=== PATIENT | male | born 1935 | race Caucasian/White ===

== ENCOUNTER → 2019-12-08 13:55 | Outpatient (CLI) | payer OTHER, SELFPAY ==
--- NOTE | 2019-12-08 13:57 | DI.RAD.S_ITS ---
PROCEDURE: XR LUMBAR SPINE MIN 4V INDICATIONS: LBP TECHNIQUE: 5 views of the lumbar spine were acquired. COMPARISON: [facility], JOSE, SPINE LUMB MIN 4VW, 10/01/2016, 14:57. FINDINGS: Bones: 5 nonrib-bearing vertebrae are present. There is normal bony alignment. There is approximately 11? of convex right lumbar spine scoliosis. No vertebral body compression fractures. No suspicious bony lesions. Moderate degenerative disc changes noted throughout the lumbar spine. Mild L2-L3 facet hypertrophy. Moderate L3-L4, L4-L5 and L5-S1 facet hypertrophy. Soft tissues: Overlying bowel gas pattern is normal. No suspicious soft tissue calcifications. Oblique images: No pars defects. IMPRESSION: 1. Multilevel degenerative disc disease. 2. Multilevel facet arthropathy. 3. No fracture. No acute osseous lesion. If symptoms and/or clinical suspicion for pathology persists, evaluation with MRI may be helpful for further assessment. Dictated by: Jenny Sinclair MD, PhD on 12/08/2019 at 15:49 Approved by: Jenny Sinclair MD, PhD on 12/08/2019 at 15:50
== END ==
PROVIDERS: PCP Internal Medicine; Referring Provider Physical Medicine & Rehabilitation; Visit Provider Physical Medicine & Rehabilitation
DX: M54.5 Low back pain (principal); M47.26 Other spondylosis with radiculopathy, lumbar region; M47.27 Other spondylosis with radiculopathy, lumbosacral region; M51.16 Intervertebral disc disorders with radiculopathy, lumbar region; M41.86 Other forms of scoliosis, lumbar region; R26.81 Unsteadiness on feet; H91.90 Unspecified hearing loss, unspecified ear
CPT/HCPCS: 72110; 99214

== ENCOUNTER → 2020-02-21 08:33 | Outpatient (CLI) | payer OTHER, SELFPAY ==
[2020-02-22 02:18] LABS: COVID19 Sendout Not Detected (Not Detect)
== END ==
PROVIDERS: PCP Internal Medicine; Visit Provider Physician Assistant
DX: Z11.59 Encounter for screening for other viral diseases (principal)
CPT/HCPCS: 87635

== ENCOUNTER 2020-02-24 07:05 | Outpatient (CLI) | payer OTHER, SELFPAY ==
[2020-02-24] VITALS (16 sets, daily range): BP systolic 138–207; BP diastolic 58–120; PULSE 43–51; RESP 15–20; TEMP 36; O2SAT 94–99
--- NOTE | 2020-02-24 | DI.RAD.S_ITS ---
PROCEDURE: PAIN L/S FACET INJ/BLK 1ST SHAY COMPARISON: [facility], MR, MR LUMBAR SPINE WITHOUT CONTRAST, 02/07/2020, 9:32. INDICATIONS: ARTHROPATHY OF LUMBAR FACET FINDINGS: Fluoroscopic spot filming was performed to verify placement of a spinal needle at the L4-L5 level and L5-S1 level on both sides, as labeled on the films. Appropriate location of the needle tip was confirmed by injection of iodinated contrast. IMPRESSION: Intraprocedural examination within normal limits. Dictated by: Popeye Bain M.D. on 02/24/2020 at 12:18 Approved by: Popeye Bain M.D. on 02/24/2020 at 12:19
--- NOTE | 2020-02-24 09:03 | PC.NURSE ---
Case cancelled prior to any medication administration. Pt was positioned on procedure bed, first set of vitals taken. See vitals screen. Pt asymptomatic. Dr Coffey explained to pt that evaluation of low BP with hypertension was needed prior to rescheduling.
[2020-02-24] MEDS: MIDAZOLAM 5 MG/5 ML VIAL IV (10:21)
[2020-02-24] MEDS: BETAMETHASONE 30 MG/5 ML MDV 12 MG INJ (10:25)
[2020-02-24] MEDS: IOPAMIDOL 15 ML VIAL 3 ML INJ (10:26)
[2020-02-24] MEDS: BUPIVACAINE 0.5% (PF) VIAL 5 ML INJ (10:26)
[2020-02-24] MEDS: LIDOCAINE 1% 20 ML 10 ML INJ (10:26)
--- NOTE | 2020-02-24 10:38 | P.PCN_ITS ---
Date/Time/Diagnoses Date of procedure: 02/24/20 Time of procedure: 10:39 Pre-procedure diagnosis: 1. FACET ARTHROPATHY 2. AXIAL LBP 3. MULTILEVEL DDD Post-procedure diagnosis: same Procedure Notes Procedure: 1. FLUOROSCOPICALLY GUIDED CONTRAST CONTROLLED FACET JOINT INJECTIONS BILATERAL L4/5, L5/S1 Indications: Link is referred by Dr. Donohue for treatment of Axial LBP Physician: Albaro Coffey Total Fluoroscopy time (seconds): 11 Total sedation minutes: 10 Complications: none Procedure in detail & Post-procedure care: FINDINGS Multilevel Facet Arthropathy with Clinically significant axial LBP DESCRIPTION OF PROCEDURE Fluoroscopically guided, contrast-controlled bilateral L4/5, L5/S1 facet joint injections. Following review of allergy and review of potential side effects and complications, including, but not necessarily limited to, infection, allergic reaction, local tissue breakdown, stroke, temporary or permanent nerve injury, paralysis, and possible , the patient indicated that the patient understood and agreed to proceed. An informed consent document was signed by the patient, witnessed by a nurse, and placed in the patient's chart. Additionally, other treatment options including medications, modalities, and physical therapy were reviewed with the patient. After review of previous anaesthesic history and IV conscious sedation the patient was deemed safe to proceed with today?s procedure with IV conscious sedation as ASA class II designation. Safety time-out was performed to confirm patient ID, procedure to be performed and site of procedure. IV sedation was accomplished with a combination of 1mg of Versed was administered by the RN after DO order, titrated to patient comfort during the course of the procedure while the patient remained responsive to all verbal commands In the prone position, following sterile prep and drape of the lumbar region, the posterior aspect of the L4/5, L5/S1 facet joints were identified fluoroscopically. The skin was anesthetized via a 25-gauge 1.5inch needle with 1% lidocaine solution into the corresponding facet joints. At this point, a 22- gauge 3.5-inch spinal needle was atraumatically introduced and advanced under fluoroscopic guidance into the corresponding facet joints. Following negative aspiration, injections of approximately 0.2cc of Isovue 200 confirmed interarticular placement without vascular uptake. The identical procedure was then performed at the L4/5, L5/S1 facet joints on the left. Radiological data, including multiple fluoroscopic views of the lumbosacral spine, reveal a spinal needle at the L4/5, L5/S1 facet joints bilaterally. Subsequent views show flow of contrast material both superiorly and inferiorly within the joint space without vascular or intrathecal uptake. At this point, a total of 0.5cc including a mixture of 0.25cc Marcaine and 0.25cc betamethasone was injected without complication into each of the corresponding facet joints. The patient tolerated the procedure well without signs or symptoms of complications prior to transfer to the recovery area continued monitoring without incident. The patient was then transferred to the recovery area where they were observed for an appropriate period of time after the injection. The patient reported a VAS score of 7 prior to the procedure and a post- procedure VAS of 0. POST OP INSTRUCTIONS The patient was provided a Pain Log to continue to record their response to the target-specific procedure prior to follow-up visit with their referring physician. Additionally, specific post-injection care instructions and a contact number to our office were provided if concerns arise regarding possible complications associated with the procedure are suspected.
--- NOTE | 2020-02-24 12:10 | PC.NURSE ---
Patient came back to post op room, Vital signs and rhythm monitored, Dr Coffey spoke with patients cardiology office and with son who is in room. Patient denies any dizziness or lightheaded. Plan to proceed with injection. Daughter called for update which was given. Patient tolerated injection with no adverse reactions.
--- NOTE | 2020-02-24 16:00 | PC.NURSE ---
All Sedation Medication administered by FREEDOM Zafar. All other procedural meds administered by Dr. Coffey
== END 2020-02-24 11:07 | disposition home or self-care (01) ==
LOC: RAD 07:05
PROVIDERS: PCP Internal Medicine; Referring Provider Internal Medicine; Visit Provider Physical Medicine & Rehabilitation
DX: M47.816 Spondylosis without myelopathy or radiculopathy, lumbar region (principal); M47.817 Spondylosis without myelopathy or radiculopathy, lumbosacral region; M54.5 Low back pain; M51.36 Other intervertebral disc degeneration, lumbar region; M51.37 Other intervertebral disc degeneration, lumbosacral region
CPT/HCPCS: 64493; 64494; 99152; J0702; J2250; J3010

== ENCOUNTER 2021-02-01 15:17 | Outpatient (CLI) | payer OTHER, SELFPAY ==
[2021-02-01] VITALS (9 sets, daily range): BP systolic 124–168; BP diastolic 57–74; PULSE 54–59; RESP 8–20; TEMP 36.1; O2SAT 98–100
--- NOTE | 2021-02-01 15:19 | DI.RAD.S_ITS ---
PROCEDURE: PAIN L INTERLAMINAR/CAUDAL INJ INDICATIONS: SPONDYLOSIS COMPARISON: [facility], XA, PAIN L/S FACET INJ/BLK 1ST SHAY, 02/24/2020, 10:22. FINDINGS: Fluoroscopic spot filming was performed to verify placement of a spinal needle at the L3-L4 level, as labeled on the films. Appropriate location of the needle tip was confirmed by injection of iodinated contrast. IMPRESSION: Intraprocedural examination within normal limits. Dictated by: Popeye Bain M.D. on 02/01/2021 at 15:53 Approved by: Popeye Bain M.D. on 02/01/2021 at 15:53
[2021-02-01] MEDS: MIDAZOLAM 5 MG/5 ML VIAL IV (16:20)
[2021-02-01] MEDS: BETAMETHASONE 30 MG/5 ML MDV 6 MG INJ (16:22)
[2021-02-01] MEDS: BUPIVACAINE 0.25% (PF) VIAL 2 ML INJ (16:22)
[2021-02-01] MEDS: DEXAMETHASONE 10 MG/ML VIAL 20 MG INJ (16:22)
[2021-02-01] MEDS: IOPAMIDOL 15 ML VIAL 3 ML INJ (16:22)
--- NOTE | 2021-02-01 16:29 | P.PCN_ITS ---
Date/Time/Diagnoses Date of procedure: 02/01/21 Time of procedure: 16:29 Pre-procedure diagnosis: 1. HNP WITH RADICULAR FEATURES, 2. MULTILEVEL CENTRAL STENOSIS, Post-procedure diagnosis: same Procedure Notes Procedure: 1. FLUOROSCOPICALLY GUIDED CONTRAST CONTROLLED INTERLAMINAR EPIDURAL STEROID INJECTION - L3/4 Indications: Link is referred by Dr. Donohue for treatment of Bilateral Foraminal Stenosis L>R LE symptoms. Physician: Albaro Coffey Total Fluoroscopy time (seconds): 8 Total sedation minutes: 4 Complications: none Procedure in detail & Post-procedure care: FINDINGS Multilevel Central Spinal Stenosis with Nerve Root Compression DESCRIPTION OF PROCEDURE Fluoroscopically guided, contrast-controlled L3/4 translaminar epidural steroid injection. Following review of allergy and review of potential side effects and complications, including, but not necessarily limited to, infection, allergic reaction, local tissue breakdown, temporary as well as permanent nerve injury, paralysis, stroke and possible , the patient indicated that the patient understood and agreed to proceed. An informed consent document was signed by the patient, witnessed by a nurse, and placed in the patient's chart. Additionally, other treatment options including modalities, medications, and physical therapy were reviewed with the patient. After review of previous anaesthesic history and IV conscious sedation the patient was deemed safe to proceed with today?s procedure with IV conscious sedation as ASA class II designation. Safety time-out was performed to confirm patient ID, procedure to be performed and site of procedure. IV sedation was accomplished with a combination of 1mg of Versed was administered by the RN after DO order, titrated to patient comfort during the course of the procedure while the patient remained responsive to all verbal commands. In the prone position, following sterile prep and drape of the lumbar region, the L3/4 translaminar space was identified fluoroscopically. The skin was anesthetized via a 25-gauge, 1.5-inch needle with 1% lidocaine solution. At this point, a 22-gauge short bevel spinal needle was atraumatically introduced and advanced under fluoroscopic guidance into the region of the L3/4 translaminar space. Depth was confirmed on lateral view. Radiological data, including multiple fluoroscopic views of the lumbar spine, reveal a spinal needle at the L3/4 translaminar space. Lateral views then show placement of the needle in the epidural space. Subsequent views show contrast material flowing superiorly and inferiorly in the epidural space. No vascular or intrathecal uptake is observed. At this point, using loss of resistance technique with saline and air, the epidural space was entered. This was confirmed following negative aspiration with injection of approximately 1.5 cc of Isovue 200, showing excellent epidural flow without vascular or intrathecal uptake. At this point, 1cc of 1% lidocaine solution combined with 3cc or 20mg of dexamethasone and 12mg of betamethasone was injected without incident. The patient tolerated the procedure well without signs or symptoms of complications prior to transfer to the recovery area continued monitoring without incident. The patient was then transferred to the recovery area where they were observed for an appropriate period of time after the injection. The patient reported a VAS score of 6 prior to the procedure and a post- procedure VAS of 0. POST OP INSTRUCTIONS The patient was provided a Pain Log to continue to record their response to the target-specific procedure prior to follow-up visit with their referring physician. Additionally, specific post-injection care instructions and a contact number to our office were provided if concerns arise regarding possible complications associated with the procedure are suspected.
== END 2021-02-01 17:00 | disposition home or self-care (01) ==
LOC: RAD 15:19
PROVIDERS: PCP Internal Medicine; Referring Provider Physical Medicine & Rehabilitation; Visit Provider Physical Medicine & Rehabilitation
DX: M51.16 Intervertebral disc disorders with radiculopathy, lumbar region (principal); M48.061 Spinal stenosis, lumbar region without neurogenic claudication
CPT/HCPCS: 62323; J0702; J1100; J2250; J3010